=== PATIENT | male | born 1965 | race Caucasian/White ===

== ENCOUNTER 2017-11-17 09:18 | Emergency (ER) | payer OTHER ==
[2017-11-17] MEDS ORDERED: DEXAMETHASONE (1 MG/ML PO SYG) PO (10:30)
[2017-11-17] MEDS ORDERED: LORAZEPAM 2 MG INJ IM (10:30)
[2017-11-17] MEDS: KETOROLAC 60 MG INJ IM (10:36)
[2017-11-17] MEDS: DEXAMETHASONE 10 MG/ML 1 ML INJ IM ×2 (10:37→10:39)
[2017-11-17] MEDS: LORAZEPAM 1 MG TAB PO (10:37)
[2017-11-17] MEDS: DEXAMETHASONE 4 MG TAB PO (10:38)
== END 2017-11-17 11:12 | disposition home or self-care (01) ==
LOC: FTE 09:18
DX: M54.5 Low back pain (principal)
CPT/HCPCS: 96372; 99284-25

== ENCOUNTER 2018-09-27 20:44 | Emergency (ER) | payer SELFPAY, OTHER | END 2018-09-28 01:30 | disposition left against medical advice (07) | LOC: FTE 20:44 | DX: Z53.21 Procedure and treatment not carried out due to patient leaving prior to being seen by health care provider (principal) ==